=== PATIENT | male | born 1955 | race Caucasian/White ===

== ENCOUNTER 2022-12-02 10:05 | Emergency (ER) | payer MEDICAID, OTHER ==
[~2022-12-02] VITALS: Ht 172.7 cm; Wt 59.0 kg
[2022-12-02 10:08] VITALS: BP 157/95; PULSE 90; RESP 18; TEMP 98.2; O2SAT 99
== END 2022-12-02 12:45 | disposition home or self-care (01) ==
LOC: ER 10:05
DX: S01.112A Laceration without foreign body of left eyelid and periocular area, initial encounter (principal); F10.90 Alcohol use, unspecified, uncomplicated; I10 Essential (primary) hypertension; V29.99XA Rider (driver) (passenger) of other motorcycle injured in unspecified traffic accident, initial encounter; Y93.89 Activity, other specified; Y92.89 Other specified places as the place of occurrence of the external cause; Y99.8 Other external cause status; Y90.9 Presence of alcohol in blood, level not specified
CPT/HCPCS: 99284; 70450; C1893

== ENCOUNTER 2022-12-10 10:47 | Emergency (ER) | payer OTHER ==
[~2022-12-10] VITALS: Ht 165.1 cm; Wt 54.5 kg
[2022-12-10 11:26] VITALS: BP 158/93; PULSE 75; RESP 18; TEMP 98.2; O2SAT 98
== END 2022-12-10 12:03 | disposition home or self-care (01) ==
LOC: ER 10:47
DX: S01.81XD Laceration without foreign body of other part of head, subsequent encounter (principal); I10 Essential (primary) hypertension; Z48.00 Encounter for change or removal of nonsurgical wound dressing; X58.XXXD Exposure to other specified factors, subsequent encounter
CPT/HCPCS: 99281; Z7610